=== PATIENT | male | born 1990 | race African-American/Black ===

== ENCOUNTER 2023-10-03 06:10 | Emergency (ER) | payer OTHER, MEDICAID, SELFPAY ==
--- NOTE | ~2023-10-03 | XR_ITS ---
EXAMINATION: XR chest 2V DATE: 10/03/2023 06:42 INDICATION: Left chest pain. TECHNIQUE: Frontal and lateral views of the chest were obtained. COMPARISON: None. FINDINGS: There is no pneumonia, pleural effusion, or pneumothorax. The heart size is normal. IMPRESSION: 1. No acute cardiopulmonary disease. Reviewed, dictated and finalized at location [facility]
--- NOTE | 2023-10-03 06:11 | ECG_ITS ---
Measurements Intervals [place] Rate: 75 P: 64 AR: 97 QRS: 24 QRSD: 82 T: -8 QT: 335 QTc: 376 Interpretive Statements SINUS RHYTHM WITH SHORT AR INTERVAL NONSPECIFIC T-WAVE ABNORMALITY NO PREVIOUS ECG AVAILABLE FOR COMPARISON Electronically Signed On 10-03-2023 8:48:59 [employer] CAR[employer]ER OPERATOR by Doug Frausto M.D.
[2023-10-03 06:20] VITALS: BP 100/71; PULSE 77; RESP 18; TEMP 36.6; O2SAT 97
[2023-10-03] MEDS: ASPIRIN 81 MG CHEWABLE TABLET 324 MG PO (06:36)
[2023-10-03 06:40] LABS: Basophils Percent Auto 0.6 % (0.2-1.2); Eosinophils Absolute Auto 0.1 K/mm3 (0-0.3); Eosinophils Percent Auto 1.3 % (0-4.4); Hematocrit 42.1 % (42.0-52.0); Hemoglobin 13.5 g/dL (14.0-18.0); Immature Granulocyte Absolute 0.02 K/mm3 (0.00-0.031); Immature Granulocyte Percent A 0.4 % (0-0.5); Lymphocytes Absolute Auto 2.82 K/mm3 (0.9-3.2); Lymphocytes Percent Auto 52.5 % (18.3-44.2); Mean Corpuscular HGB Conc 32.1 g/dl (32-36); Mean Corpuscular Hemoglobin 30.2 pg (26-34); Mean Corpuscular Volume 94.2 fl (80-100); Mean Platelet Volume 10.2 fl (7.4-10.4); Monocytes Absolute Auto 0.4 K/mm3 (0.1-0.6); Monocytes Percent Auto 8.2 % (2.6-8.5); Platelet Count Result 288 k/mm3 (150-375); Red Blood Count 4.47 M/mm3 (4.6-6.20); Red Cell Distribution Width 11.8 % (11.5-14.5); White Blood Count 5.4 K/mm3 (4.5-10.0)
[2023-10-03 06:49] LABS: Alanine Aminotransferase 21 U/L (6-50); Albumin Level 4.3 g/dL (3.5-5.1); Alkaline Phosphatase 63 U/L (38-126); Anion Gap 4 mmol/L (8-16); Aspartate Amino Transferase 35 U/L (17-59); Bilirubin,Total 1.4 mg/dL (0.2-1.3); Blood Urea Nitrogen 12 mg/dL (9-20); Carbon Dioxide 29 mmol/L (22-30); Chloride 106 mmol/L (98-107); Estimated CRCL calculation 87 ml/min; Estimated Glomerular Filt Rate > 60; Glucose 117 mg/dL (65-110); Lipase 70 U/L (23-300); Potassium 3.7 mmol/L (3.4-5.0); Sodium 139 mmol/L (137-145)
[2023-10-03 06:50] LABS: Partial Thromboplastin Time 26.5 SECONDS (22.3-36.8); Prothrombin Time 13.9 Seconds (11.1-14.7)
[2023-10-03 06:58] LABS: Troponin I < 0.012 ng/mL (0.000-0.034)
--- NOTE | 2023-10-03 07:12 | ED.CHESTPAIN ---
HPI - Chest Pain General Chief Complaint: Chest Pain Stated Complaint: Chest Pain on left side Time Seen by Provider: 10/03/23 06:53 History of Present Illness HPI narrative: 33-year-old male presented to the emergency department for evaluation of left-sided chest pain that started bothering him at 4:30 a.m. in morning. Patient states the pain has since improved. Patient described a sharp left-sided chest pain that did radiate to his left arm. Patient denies any shortness of breath, diaphoresis, nausea or vomiting with this. Patient denies any worsening of the pain with deep inspiration. Patient states sometimes with movement the pain did seem to be affected. Patient states when he was younger he did have a cardiac catheterization but states that he is unsure why and has never had follow-up with Cardiology since. Patient works on the [employer] and does do strenuous activity and patient states he has never had chest pain like this before and states he does not suspect that he had a muscular injury and does not remember injuring himself at work. Related Data Allergies Allergy/AdvReac Type Severity Reaction Status Date / Time No Known Allergies Allergy Verified 10/03/23 06:35 Review of Systems Review of Systems: All systems reviewed & are unremarkable except as noted in HPI and below Exam Narrative: APPEARANCE: Well appearing, no pain, no distress, well-nourished. HEAD: normocephalic, atraumatic. EYES: PERRLA/EOMI, conjunctivae clear. NOSE: Normal no drainage EARS:TMS clear with good light reflex. RESPIRATORY: Airway patent, respirations nonlabored. Clear to auscultation bilaterally, no rales, rhonchi, wheezing. CARDIOVASCULAR: Regular rate and rhythm without murmurs rubs or gallops. ABDOMINAL: Soft, nontender, nondistended, normal bowel sounds MUSCULOSKELETAL: Moves all extremities. Strength/ROM intact, No edema, No calf tenderness. NEURO: Alert. Cranial nerves II through XII intact. Grossly intact SKIN: Warm, dry. Normal Color Course Course Emergency Course: 33-year-old presenting to the emergency department for evaluation of some left-sided chest pain. Patient did receive aspirin upon arrival states the pain has resolved. Patient is afebrile with no leukocytosis and a stable hemoglobin of 13.5. No acute abnormalities on the patient's CBC and patient's initial troponin was negative. No acute abnormality on the chest x-ray and EKG shows normal sinus rhythm. Vital Signs Vital signs: Vital Signs Temperature 97.8 F 10/03/23 06:20 Pulse Rate 77 10/03/23 06:20 Respiratory Rate 18 10/03/23 06:20 Blood Pressure 100/71 10/03/23 06:20 Pulse Oximetry 97 10/03/23 06:20 Oxygen Delivery Room Air 10/03/23 06:20 Temperature 97.8 F 10/03/23 06:20 Pulse Rate 73 10/03/23 10:28 Respiratory Rate 15 10/03/23 10:28 Blood Pressure 108/75 10/03/23 10:28 Pulse Oximetry 100 10/03/23 10:28 Oxygen Delivery Room Air 10/03/23 06:20 MDM - Chest Pain Differential Diagnosis Differential diagnosis: Likely pneumothorax, unstable angina pectoris, atypical chest pain, st elevation myocardial infarction, costochondritis and biliary colic Lab Data Attestation: I reviewed the patient's lab results. 10/03/23 06:31 10/03/23 06:31 Labs: Lab Results 10/03/23 10/03/23 Range/Units 06:31 09:11 WBC 5.4 (4.5-10.0) K/mm3 RBC 4.47 L (4.6-6.20) M/mm3 Hgb 13.5 L (14.0-18.0) g/dL Hct 42.1 (42.0-52.0) % MCV 94.2 (80-100) fl MCH 30.2 (26-34) pg MCHC 32.1 (32-36) g/dl RDW 11.8 (11.5-14.5) % Plt Count 288 (150-375) k/mm3 MPV 10.2 (7.4-10.4) fl Immature Gran % (Auto) 0.4 (0-0.5) % Neut % (Auto) 37.0 L (45.5-73.1) % Lymph % (Auto) 52.5 H (18.3-44.2) % [place] % (Auto) 8.2 (2.6-8.5) % Eos % (Auto) 1.3 (0-4.4) % Baso % (Auto) 0.6 (0.2-1.2) % Lymph # (Auto) 2.82 (0.9-3.2) K/mm3 [place] # (Auto) 0.4 (0.1-0.6) K/mm3 Eos #
[2023-10-03 07:18] VITALS: BP 109/68; PULSE 78; PULSE 80; RESP 12; O2SAT 99
[2023-10-03 08:47] VITALS: BP 110/68; PULSE 63; RESP 17; O2SAT 98
[2023-10-03 08:56] LABS: D Dimer < 0.22 ug/mL (<0.48)
[2023-10-03 09:09] VITALS: BP 107/75; PULSE 74; RESP 13; O2SAT 100
--- NOTE | 2023-10-03 09:09 | ECG_ITS ---
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
[2023-10-03 09:37] LABS: Troponin I < 0.012 ng/mL (0.000-0.034)
[2023-10-03 10:28] VITALS: BP 108/75; PULSE 73; RESP 15; O2SAT 100
== END 2023-10-03 10:29 | disposition home or self-care (01) ==
PROVIDERS: Emergency Medicine; Emergency Provider Emergency Medicine
DX: R07.9 Chest pain, unspecified (principal)
CPT/HCPCS: 36415; 71046; 80053; 83690; 84484; 85025; 85380; 85610; 85730; 93005; 99284; A9270